=== PATIENT | female | born 1935 | race Caucasian/White ===

== ENCOUNTER → 2017-01-01 | Outpatient (REF) | payer MEDICARE, OTHER ==
[~2017-01-01] MED LIST: /WARF5TA OR; SYNT50TA OR
[2017-01-01 16:31] LABS: INR 1.82
== END ==
LOC: M LABDRAW1 15:50
PROVIDERS: ATTEND Internal Medicine
DX: I48.0 Paroxysmal atrial fibrillation (principal)

== ENCOUNTER → 2017-02-18 | Outpatient (REF) | payer MEDICARE, OTHER ==
[2017-02-18 19:39] LABS: INR 1.77
== END ==
LOC: M LABDRAW1 18:46
PROVIDERS: ATTEND Internal Medicine
DX: Z51.81 Encounter for therapeutic drug level monitoring (principal); Z79.01 Long term (current) use of anticoagulants

== ENCOUNTER → 2017-03-12 | Outpatient (REF) | payer MEDICARE, OTHER ==
[2017-03-12 16:36] LABS: INR 2.28
== END ==
LOC: M LABDRAW1 15:32
PROVIDERS: ATTEND Internal Medicine
DX: Z51.81 Encounter for therapeutic drug level monitoring (principal); Z79.01 Long term (current) use of anticoagulants

== ENCOUNTER → 2017-12-23 | Outpatient (REF) | payer MEDICARE, OTHER ==
[2017-12-23 12:59] LABS: INR 2.42; PROTHROMBIN TIME 27.3 SECONDS (12.4-14.5)
== END ==
LOC: M LABDRAW1 11:23
DX: Z79.01 Long term (current) use of anticoagulants (principal)
CPT/HCPCS: 85610

== ENCOUNTER → 2018-02-25 | Outpatient (REF) | payer MEDICARE, OTHER ==
[2018-02-25 11:18] LABS: INR 1.16
== END ==
LOC: M LABDRAW1 08:50
DX: Z79.01 Long term (current) use of anticoagulants (principal)
CPT/HCPCS: 85610